=== PATIENT | female | born 1960 | race Caucasian/White ===

== ENCOUNTER 2017-12-01 09:29 | Outpatient (CLI) | payer BC ==
[2017-12-01 09:51] LABS: MEAN CORPUSCULAR HEMOGLOBIN 30.4 pg (28.0-34.0); MEAN CORPUSCULAR VOLUME 90.9 fl (80.0-100.0)
[2017-12-01 10:15] LABS: eGFR (African) > 60; eGFR (Non-African) > 60
--- NOTE | 2017-12-01 11:11 | Diagnostic Imaging Report ---
MAY SHARMA [facility] [address] [facility] [address] [address] Report Submission Date: Dec 01, 2017 10:17:58 AM GRADES 7 8 TUTOR Patient Study Name: CLARA PERSAUD Date: Dec 01, 2017 9:49:13 AM GRADES 7 8 TUTOR Modality Type: DX Gender: F Description: CHEST : 56 Institution: [facility] Physician: MAY SHARMA Examination: PA and lateral chest. History: CHEST PAIN X SEVERAL YEARS WITH NUMBNESS STARTING IN LT ARM X 1 WEEK AGO (Hx) Comparison exam: None provided. Findings: PA lateral chest demonstrate a normal cardiac and mediastinal silhouette. Tortuous aorta. No focal infiltrate. No blunting of the costophrenic margins. Osseous structures are appropriate for age. Impression: No acute appearing pulmonary process. Electronically signed on Dec 01, 2017 10:17:58 AM GRADES 7 8 TUTOR by: Bridger CARLTON
== END 2017-12-01 09:30 ==
LOC: RT 09:29
PROVIDERS: ATTEND Family Medicine
DX: R07.9 Chest pain, unspecified (principal)
CPT/HCPCS: 36415; 71046; 80053; 85027

== ENCOUNTER 2018-03-31 08:30 | Outpatient (CLI) | payer BC ==
[2018-03-31 09:20] LABS: eGFR (African) > 60; eGFR (Non-African) > 60
== END 2018-03-31 08:32 ==
LOC: LAB 08:30
PROVIDERS: ATTEND Family Medicine
DX: R79.89 Other specified abnormal findings of blood chemistry (principal)
CPT/HCPCS: 36415; 80053

== ENCOUNTER 2019-01-20 07:19 | Outpatient (CLI) | payer BC ==
--- NOTE | 2019-01-21 17:04 | OP Clinic Progress Note ---
SUBJECTIVE: The patient is a 58-year-old female who presented to the clinic today for a right heel injection. We have been seeing the patient for plantar fasciitis of the right heel and she has been doing her stretching as well as using inserts etc. and has only achieved about 50% improvement still at this time. She does not admit to any diabetes or allergies at this time. She does not admit to any fevers, chills, nausea, vomiting, shortness of breath or chest pain. She would like a heel injection to see if we can take her that last 50% of improvement on this right heel. OBJECTIVE: Vitals: Temperature 97.1 degrees Fahrenheit, heart rate 100, respiration rate 18, blood pressure 139/85. O2 saturation is 97% on room air. Vascular: 2+ DP and PT pulses, right foot. Capillary refill time is less than 3 seconds to the toes of the right foot. No edema, right foot. Dermatologic: There is no ecchymosis, erythema or concerning skin lesions, right foot. Musculoskeletal: There is pain on palpation noted in the right plantar medial calcaneal tubercle. Ankle range of motion is still at about 5 degrees dorsiflexion with the knee extended with an improvement to 10 degrees with the knee flexed, right leg. There are no other gross abnormalities, right foot. She has no pain on palpation elsewhere at this time. Neurologic: Light touch sensation is intact to the toes, right foot. Psychiatric: Mental status is grossly normal and affect is normal. ASSESSMENT AND PLAN: 1. Plantar fasciitis of the right foot; M72.2. 2. Gastrocnemius equinus of the right lower extremity; M21.6X1. The risks and benefits of a steroid injection to the heel of the right foot was discussed today including but not limited to bleeding and infection. The patient has agreed both by written and verbal consent to go forward with a right heel steroid injection at this time and consent was signed and placed in the chart. PROCEDURE #1: Right heel steroid injection. An alcohol swab was utilized to cleanse the heel and an injection consisting of 1 mL of 2% lidocaine plain, 1 mL of 0.5% Marcaine plain and 0.5 mL of dexamethasone 4 mg/mL and 0.5 mL of Kenalog 40 mg/mL was injected into the right heel plantar fascia area. The patient tolerated the procedure well. There was virtually zero bleeding. A Band-Aid was applied at the end of the procedure. The patient was instructed on the possibility of a steroid flare prior to the procedure. The patient also was instructed to look for any signs of infection and if she notices any increase in redness to call her primary care physician, Dr. Castellon, as I will be out of town from the through the . Return to the clinic in 3 or 4 weeks to the [facility] for follow-up. The patient was also given a prescription today for a night splint which she was encouraged to begin using at this time to help with increasing her stretching better. A prescription was sent with the patient today to go pick one up at [facility] or another facility she chooses. Shubham EchevarriaPCurly. (Dictated/Not Signed) Nadine Job#: [id number] MTDD
== END 2019-01-20 07:21 ==
LOC: POD 07:19
PROVIDERS: ATTEND Podiatrist Foot & Ankle Surgery
DX: M21.6X1 Other acquired deformities of right foot (principal); M72.2 Plantar fascial fibromatosis
CPT/HCPCS: 20550; J1100; J3301

== ENCOUNTER 2019-07-06 10:34 | Outpatient (CLI) | payer BC ==
[2019-07-17 16:30] LABS: HDL 37 mg/dL (>40); eGFR (Non-African) > 60
== END 2019-07-06 10:40 ==
LOC: LAB 10:34
PROVIDERS: ATTEND Family Medicine
DX: Z13.220 Encounter for screening for lipoid disorders (principal); G25.81 Restless legs syndrome
CPT/HCPCS: 36415; 80053; 80061; 85027